=== PATIENT | female | born 1980 | race Asian ===

== ENCOUNTER 2024-05-27 08:09 | Outpatient (AMB) | payer OTHER, SELFPAY ==
[2024-05-27 08:13] VITALS: BP 118/70; PULSE 64; TEMP 36.2; O2SAT 99; BMI 19.2
--- NOTE | 2024-05-27 08:13 | MHC.PC.OV ---
Vital Signs 05/27/24 08:13 Height 5 ft 1 in Weight 101 lb 6 oz BMI 19.2 BP 118/70 Blood Pressure Location Lt brachial Position Sitting Pulse 64 Pulse Source Pulse Oximeter Temp 97.1 F Temp Source Temporal Artery Scan Pulse Oximetry (%) 99 Oxygen Delivery Method Room Air Intake Visit Reasons: Establish care Allergies No Known Allergies Allergy (Verified 05/27/24 08:25) Medication List - Last Reconciled 05/27/24 by Yady Mc PA-C No Known Home Meds Tobacco use date assessed: 05/27/24 Dental Screening Dental Screen Date: 05/27/24 Did you have a dental visit in the last 12 months?: No Did you have a dental problem in the last 6 months where you did not have access to dental care?: No Was dental information given to patient?: Yes HPI Establish care HPI Details 44 year old female coming to the office for the first time. The patient is a 44-year-old female presenting with a persistent cough and for wellness evaluation. She reports a two-month history of a persistent dry cough following a COVID-19 infection. Despite antibiotic treatment, the cough has not improved. The cough is dry and occasionally we will become productive with clear phlegm. It does not interfere with sleep and is not aggravated by exercise. Previous similar episodes occurred during allergy seasons, with limited relief from allergy medications and inhalers. She denies smoking, gastroesophageal reflux, chest pain, or any alarming symptoms such as hemoptysis or dyspnea. Notably, she underwent menopause two years ago and initially experienced hot flashes. She has a previous history of abnormal Pap smear and has not seen a hospice/home health aide in many years. She is not up-to-date on colonoscopy or mammogram. 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 1. Little interest or pleasure in doing things: not at all 2. Feeling down, depressed, or hopeless: not at all 3. Trouble falling or staying asleep, or sleeping too much: not at all 4. Feeling tired or having little energy: not at all 5. Poor appetite or overeating: not at all 6. Feeling bad about yourself - or that you are a failure or have let yourself or your family down: not at all 7. Trouble concentrating on things, such as reading the newspaper or watching television: not at all 8. Moving or speaking so slowly that other people could have noticed. Or the opposite - being so fidgety or restless that you have been moving around a lot more than usual: not at all 9. Thoughts that you would be better off or of hurting yourself in some way: not at all Total score: 0 Depression Screening Interpretation: Negative Depression Screening Done: Yes 35025 - PHQ-9 Billing: Yes Source: Developed by Drs. Abdon Damian, Berta Jolly, Conrado Roblero and colleagues, with an educational madeline from [employer]. Thrive Questionnaire Date Thrive assessed: 05/27/24 I am a: Patient What is your living situation today?: I have a steady place to live Within the past 12 months, did the food you bought not last and you didn't have the money to get more?: I choose not to answer this question Within the past 12 months, did you worry whether your food would run out before you got money to buy more?: I choose not to answer this question Do you have trouble paying for medicines?: No Do you have trouble getting transportation to medical appointments?: No Do you have trouble paying your heating and electricity bill?: No Do you have trouble taking care of your child, family member or friend?: No Do you have trouble with day-to-day activities such as bathing, preparing meals, shopping, managing finances, etc.?: No Are you currently unemployed and looking for a job?: No Are you interested in more education?: I choose not to answer this question Please select the resources that you would like help with: Education Currently or been in a relationship where the following occur: I choose not to answer THRIVE Score: 0 AUDIT C Alcohol Use Questionnaire (AUDIT-C) 1. How often do you have a drink containing alcohol?: 2-4 times a month 2. How many drinks containing alcohol do you have on a typical day when you are drinking?: 1 or 2 3. How often do you have six or more drinks on one occasion?: Never Total Score: 2 ALEXANDRA-7 AMB Questionnaire ALEXANDRA-7 Date ALEXANDRA - 7 assessed: 05/27/24 Feeling nervous, anxious, or on edge: 0 = Not at all Not being able to stop or control worryin = Not at all Worrying too much about different things: 0 = Not at all Trouble relaxin = Not at all Being so restless that it is hard to sit still: 0 = Not at all Becoming easily annoyed or irritable: 0 = Not at all Feeling afraid as if something awful might happen: 0 = Not at all Total ALEXANDRA-7 score (0-4 normal; 5-9 mild; 10-14 moderate; 15-21 severe): 0 Source: Developed by Drs. Abdon Damian, Berta Jolly, Conrado Roblero and colleagues, with an educational madeline from [employer]. ALEXANDRA-7 Assessment Billing ALEXANDRA-7 Assessment Tool: ALEXANDRA-7 Assessment 51844 Review of Systems Const Denies body aches, Denies chills, Denies fever(s), Denies headache(s) and Denies poor appetite Eyes Reports no additional complaints ENT Denies dizziness and Denies headache(s) Card Denies chest pain, Denies syncope, Denies edema, Denies irregular heart rhythm, Denies lightheadedness and Denies dyspnea Resp Reports cough, Denies hemoptysis and Denies dyspnea GI Denies abdominal pain, Denies nausea and Denies vomiting Reports no additional complaints Musc Reports no additional complaints and Denies abnormal gait Skin/Breast Reports system reviewed and no additional complaints, except as documented Neuro Denies abnormal gait, Denies dizziness, Denies syncope and Denies headache(s) Psych Reports no additional complaints Physical exam (Primary Care) Vital Signs: Last Vital Signs Temp 97.1 F 05/27/24 08:13 Pulse 64 05/27/24 08:13 BP 118/70 05/27/24 08:13 Pulse Ox 99 05/27/24 08:13 Oxygen Delivery Method Room Air 05/27/24 08:13 BMI result Body Mass Index 19.2 Tobacco/Smoking Status: Tobacco use Status Tobacco use date assessed 05/27/24 05/27/24 08:17 Patient Tobacco Use Status Never used Tobacco 05/27/24 08:17 PHQ-9: PHQ-9 Score PHQ-9: Total score 0 05/27/24 08:19 Depression Screening Interpretation: Negative Thrive Assessment: Date of Thrive Assessment Date Thrive assessed 05/27/24 05/27/24 08:19 Currently or been in a relationship where the following occur: I choose not to answer Const General: cooperative, healthy appearing, comfortable and no acute distress Orientation/consciousness: patient oriented x3 HENMT Head: Yes normocephalic Ears: hearing grossly normal bilaterally General nose exam: Normal external nose present Eyes General: appearance normal, both eyes and all related structures Conjunctivae: conjunctivae normal Neck Neck: Yes full ROM and Yes no lymphadenopathy Resp Effort & Inspection: normal respiratory effort Auscultation: clear to auscultation bilaterally, no crackles, no rales, no rhonchi and no wheezes Cardio Rate: regular rate Rhythm: regular rhythm Skin General skin exam: no rashes or lesions noted Neuro General: patient oriented x3 Gait exam (Neuro): Normal gait present Extrem General: Yes normal to inspection, Yes full ROM and No edema Psych Affect: normal affect Attitude: cooperative Insight: Good insight present (Psych) Judgement: Good judgement present (Psych) Coding Level of Care Code New Pt Level 4 (38359) Diagnoses Persistent cough R05.3 Seasonal allergies J30.2 Screening for hypercholesterolemia Z13.220 Screening for colorectal cancer Z12.11; Z12.12 Screening for breast cancer Z12.39 Additional Codes ALEXANDRA-7 Assessment Billing - ALEXANDRA-7 Assessment Tool: ALEXANDRA-7 Assessment 74940 ([id number]) PHQ-9 - 78796 - PHQ-9 Billing: Yes ([id number]) Assessment & Plan Assessment & Plan (1) Persistent cough: Code(s): R05.3 - Chronic cough Category: Medical Plan: I will evaluate the persistent cough potentially linked to post-infectious causes or seasonal allergies by ordering a pulmonary function test to assess for asthma. An inhaler has been prescribed for potential attacks, particularly given the seasonal pattern noted. Allergy medication and a nasal spray have been initiated for daily use. Benzonatate also prescribed to be used as needed. Low suspicion for GERD contributing to persistent cough due to lack of reflux or nausea and lack of phlegm production. If PFT is negative can consider referral to turntable operator. At this time we will defer imaging as lungs are clear on exam and low suspicion for infectious cause (2) Seasonal allergies: Code(s): J30.2 - Other seasonal allergic rhinitis Category: Medical Plan: Antihistamine and nasal spray has been prescribed today. (3) Screening for hypercholesterolemia: Code(s): Z13.220 - Encounter for screening for lipoid disorders Category: Medical Plan: Blood work ordered. (4) Screening for colorectal cancer: Code(s): Z12.11 - Encounter for screening for malignant neoplasm of colon; Z12.12 - Encounter for screening for malignant neoplasm of rectum Category: Medical Plan: Referral placed for GI specialist (5) Screening for breast cancer: Code(s): Z12.39 - Encounter for other screening for malignant neoplasm of breast Category: Medical Plan: Mammogram ordered today Plan Comprehensive blood work including fasting cholesterol profiling and other labs will verify menopause status and address any related symptoms. Health maintenance includes mammogram and planned colonoscopy, with referrals to gynecology for routine exams to ensure all health aspects are covered. This note was constructed using voice recognition software. While every effort has been made to ensure accuracy and agronomist, still areas may have been included sometimes these areas may affect the content or meeting of the given symptoms. Total time spent caring for the patient today was 30 minutes. This includes time spent before the visit reviewing the chart, time spent during the visit, and time spent after the visit and documentation. Patient was informed and verbally consented to the use of an ambient scribe for clinic note documentation during this visit. Orders: Orders Comprehensive Met. Panel Today Z00.00 - Encounter for general adult medical examination without abnormal findings TSH reflex Free T4 Today Z00.00 - Encounter for general adult medical examination without abnormal findings Vitamin B12 and Folate Today Z00.00 - Encounter for general adult medical examination without abnormal findings Vitamin D 25-OH Total Today Z00.00 - Encounter for general adult medical examination without abnormal findings Lipid Panel Today J30.2 - Other seasonal allergic rhinitis, Z13.220 - Encounter for screening for lipoid disorders MM tomosynthesis screening BI Today Z12.31 - Encounter for screening mammogram for malignant neoplasm of breast PFT pulmonary function test Today J30.2 - Other seasonal allergic rhinitis, R05.3 - Chronic cough Complete Blood Count Auto Diff Today Z00.00 - Encounter for general adult medical examination without abnormal findings Free T4 (Free Thyroxine) Today Z00.00 - Encounter for general adult medical examination without abnormal findings Referrals OPERATIONS ADMINISTRATIVE ASSISTANT Referral Z12.4 - Encounter for screening for malignant neoplasm of cervix Gastroenterology Referral Z12.11 - Encounter for screening for malignant neoplasm of colon Medications: New fexofenadine 180 mg PO DAILY 90 tabs 1RF albuterol sulfate 90 mcg/actuation 1 inh inhalation QID 6.7 grams 0RF fluticasone propionate 50 mcg/actuation (Flonase Allergy Relief) administer into each nostril 1 spray intranasal DAILY 16 grams 1RF benzonatate 100 mg PO BID PRN 30 caps 0RF cough
== END 2024-05-27 08:44 | disposition home or self-care (01) ==
LOC: HO.HMCH 08:10
DX: R05.3 Chronic cough (principal); J30.2 Other seasonal allergic rhinitis; Z13.220 Encounter for screening for lipoid disorders; Z12.11 Encounter for screening for malignant neoplasm of colon; Z12.12 Encounter for screening for malignant neoplasm of rectum; Z12.39 Encounter for other screening for malignant neoplasm of breast

== ENCOUNTER → 2024-05-27 08:09 | Outpatient (BNVA) | payer OTHER, SELFPAY | DX: R05.3 Chronic cough (principal); J30.2 Other seasonal allergic rhinitis | CPT/HCPCS: 96127 ==

== ENCOUNTER 2024-06-08 16:23 | Outpatient (REF) | payer OTHER, SELFPAY | END 2024-06-08 16:24 | disposition home or self-care (01) | LOC: HO.MAMMO 16:23 | DX: Z12.31 Encounter for screening mammogram for malignant neoplasm of breast (principal) | CPT/HCPCS: 77063; 77067 ==

== ENCOUNTER → 2024-06-08 16:30 | Outpatient (BNV) | payer OTHER, SELFPAY | PROVIDERS: Visit Provider Internal Medicine | DX: Z12.31 Encounter for screening mammogram for malignant neoplasm of breast (principal) | CPT/HCPCS: 77063; 77067 ==

== ENCOUNTER 2024-08-13 08:15 | Outpatient (REF) | payer OTHER, SELFPAY ==
--- NOTE | 2024-08-13 08:18 | PFT_ITS ---
Flows: FEV1: 109 % of predicted at 2.64 L FVC: 99 % of predicted at 2.92 L FEV1/FVC: 90 % Bronchodilator response: Absent Volumes: Total lung capacity: 96 % of predicted at 4.50 L Residual volume: 121 % of predicted at 1.51 L Slow vital capacity: 86 % of predicted at 2.98 L Expiratory reserve volume: 42 % of predicted at 0.42 L Diffusion capacity: Normal Impression: No obstructive or restrictive ventilatory defect. No bronchodilator response. Increased residual volume suggests air trapping. MTDD
[2024-08-13 08:54] VITALS: PULSE 62; O2SAT 98
== END 2024-08-13 08:16 | disposition home or self-care (01) ==
LOC: HO.RESP 08:15
DX: Z00.00 Encounter for general adult medical examination without abnormal findings (principal); R05.3 Chronic cough; J30.2 Other seasonal allergic rhinitis; M51.16 Intervertebral disc disorders with radiculopathy, lumbar region; Z13.31 Encounter for screening for depression
CPT/HCPCS: 94010; 94640; 94727; 94729; 96127

== ENCOUNTER → 2024-08-13 08:18 | Outpatient (BNV) | payer OTHER, SELFPAY | PROVIDERS: Visit Provider Internal Medicine Pulmonary Disease | DX: R05.9 Cough, unspecified (principal) | CPT/HCPCS: 94060; 94727; 94729 ==

== ENCOUNTER 2024-08-13 14:55 | Outpatient (AMB) | payer OTHER, SELFPAY ==
--- NOTE | 2024-08-13 14:58 | MHC.PC.OV ---
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 Metal Patterns Required: No Accompanied by: Self / Same As Patient Allergies No Known Allergies Allergy (Verified 08/13/24 15:14) Medication List - Last Reconciled 08/13/24 by Yady Mc PA-C albuterol sulfate 90 mcg/actuation 1 inh inhalation QID benzonatate 100 mg PO BID PRN fexofenadine 180 mg PO DAILY fluticasone propionate 50 mcg/actuation (Flonase Allergy Relief) 1 spray intranasal DAILY Tobacco use date assessed: 08/13/24 Dental Screening Dental Screen Date: 08/13/24 Did you have a dental visit in the last 12 months?: No Did you have a dental problem in the last 6 months where you did not have access to dental care?: No Was dental information given to patient?: No HPI ANNUAL HPI Details 44-year-old female with past medical history of seasonal allergies last seen 05/2024 coming in for annual exam. Patient states the cough has been improving since initiation of the allergy medication. She has no acute concerns today. 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 1. Little interest or pleasure in doing things: not at all 2. Feeling down, depressed, or hopeless: not at all 3. Trouble falling or staying asleep, or sleeping too much: not at all 4. Feeling tired or having little energy: not at all 5. Poor appetite or overeating: not at all 6. Feeling bad about yourself - or that you are a failure or have let yourself or your family down: not at all 7. Trouble concentrating on things, such as reading the newspaper or watching television: not at all 8. Moving or speaking so slowly that other people could have noticed. Or the opposite - being so fidgety or restless that you have been moving around a lot more than usual: not at all 9. Thoughts that you would be better off or of hurting yourself in some way: not at all Total score: 0 Depression Screening Interpretation: Negative Depression Screening Done: Yes 16579 - PHQ-9 Billing: Yes Source: Developed by Drs. Abdon Damian, Berta Jolly, Conrado Roblero and colleagues, with an educational madeline from [employer]. Thrive Questionnaire Date Thrive assessed: 08/13/24 I am a: Patient What is your living situation today?: I have a steady place to live Within the past 12 months, did the food you bought not last and you didn't have the money to get more?: I choose not to answer this question Within the past 12 months, did you worry whether your food would run out before you got money to buy more?: I choose not to answer this question Do you have trouble paying for medicines?: No Do you have trouble getting transportation to medical appointments?: No Do you have trouble paying your heating and electricity bill?: No Do you have trouble taking care of your child, family member or friend?: No Do you have trouble with day-to-day activities such as bathing, preparing meals, shopping, managing finances, etc.?: No Are you currently unemployed and looking for a job?: No Are you interested in more education?: I choose not to answer this question Please select the resources that you would like help with: Education Currently or been in a relationship where the following occur: I choose not to answer THRIVE Score: 0 AUDIT C Alcohol Use Questionnaire (AUDIT-C) 1. How often do you have a drink containing alcohol?: 2-4 times a month 2. How many drinks containing alcohol do you have on a typical day when you are drinking?: 1 or 2 3. How often do you have six or more drinks on one occasion?: Never Total Score: 2 ALEXANDRA-7 AMB Questionnaire ALEXANDRA-7 Date ALEXANDRA - 7 assessed: 08/13/24 Feeling nervous, anxious, or on edge: 0 = Not at all Not being able to stop or control worryin = Not at all Worrying too much about different things: 0 = Not at all Trouble relaxin = Not at all Being so restless that it is hard to sit still: 0 = Not at all Becoming easily annoyed or irritable: 0 = Not at all Feeling afraid as if something awful might happen: 0 = Not at all Total ALEXANDRA-7 score (0-4 normal; 5-9 mild; 10-14 moderate; 15-21 severe): 0 Source: Developed by Drs. Abdon Damian, Berta Jolly, Conrado Roblero and colleagues, with an educational madeline from [employer]. ALEXANDRA-7 Assessment Billing ALEXANDRA-7 Assessment Tool: ALEXANDRA-7 Assessment 84868 Review of Systems Const Denies body aches, Denies chills, Denies fever(s), Denies headache(s) and Denies poor appetite Eyes Reports no additional complaints ENT Denies dysphagia, Denies dizziness, Denies headache(s) and Denies odynophagia Card Denies chest pain, Denies syncope, Denies edema, Denies irregular heart rhythm, Denies lightheadedness and Denies dyspnea Resp Denies cough and Denies dyspnea GI Denies abdominal pain, Denies constipation, Denies dysphagia, Denies diarrhea, Denies nausea, Denies odynophagia and Denies vomiting Reports no additional complaints Musc Denies abnormal gait and Reports back pain (intermittent ) Skin/Breast Reports system reviewed and no additional complaints, except as documented Neuro Denies abnormal gait, Denies dizziness, Denies syncope and Denies headache(s) Psych Reports no additional complaints Physical exam (Primary Care) Vital Signs: Last Vital Signs Pulse 65 08/13/24 14:59 BP 118/80 08/13/24 14:59 Pulse Ox 98 08/13/24 14:59 Oxygen Delivery Method Room Air 06/12/25 14:59 BMI result Body Mass Index 19.2 Tobacco/Smoking Status: Tobacco use Status Tobacco use date assessed 08/13/24 08/13/24 15:04 Patient Tobacco Use Status Never used Tobacco 08/13/24 15:04 PHQ-9: PHQ-9 Score PHQ-9: Total score 0 08/13/24 15:04 Depression Screening Interpretation: Negative Thrive Assessment: Date of Thrive Assessment Date Thrive assessed 08/13/24 08/13/24 15:04 Currently or been in a relationship where the following occur: I choose not to answer Const General: cooperative, healthy appearing, comfortable and no acute distress Orientation/consciousness: patient oriented x3 HENMT Head: Yes normocephalic Ears: hearing grossly normal bilaterally, external ears normal, TM's normal bilaterally and EAC's normal General nose exam: Normal external nose present Face and sinus: Yes normal facial exam and Yes sinuses nontender Mouth: Normal oral and palatal mucosa present and tongue normal Throat: Yes posterior oropharynx normal Eyes General: appearance normal, both eyes and all related structures Conjunctivae: conjunctivae normal Pupils: Equal, round and reactive pupils present EOM: EOMs intact bilaterally and No Nystagmus present Neck Neck: Yes normal visual inspection, Yes full ROM and Yes no lymphadenopathy Chest Chest palpation & inspection: normal inspection of the chest Resp Effort & Inspection: normal respiratory effort Auscultation: clear to auscultation bilaterally, no crackles, no rales, no rhonchi, no wheezes and breath sounds present Cardio Rate: regular rate Rhythm: regular rhythm Peripheral pulses: radial pulses present and dorsalis pedis present GI Inspection: Yes normal to inspection and No Abdominal wall edema Palpation (GI): Soft to palpation, not firm and nontender Auscultation: normal bowel sounds Rectal Exam - Female: deferred General: Yes no CVA tenderness Back/Spine/Pelvis Back: no CVA tenderness Skin General skin exam: no rashes or lesions noted Neuro General: patient oriented x3 Cranial nerves: Yes Equal, round and reactive pupils present, Yes Midline tongue present, Yes Ability to bilaterally elevate shoulders present and No Nystagmus present Gait exam (Neuro): Normal gait present Extrem General: Yes normal to inspection, Yes full ROM, No no pedal edema and No edema Psych Speech and movement: Normal speech and movement present Affect: normal affect Insight: Good insight present (Psych) Judgement: Good judgement present (Psych) Coding Level of Care Code Est Pt Prev Care 40-64y(51444) Diagnoses Annual physical exam Z00.00 Persistent cough R05.3 Seasonal allergies J30.2 Screening for breast cancer Z12.39 Lumbar disc herniation with radiculopathy M51.16 Screening for colorectal cancer Z12.11; Z12.12 Additional Codes ALEXANDRA-7 Assessment Billing - ALEXANDRA-7 Assessment Tool: ALEXANDRA-7 Assessment 52686 ([id number]) PHQ-9 - 90178 - PHQ-9 Billing: Yes ([id number]) Assessment & Plan Assessment & Plan (1) Annual physical exam: Code(s): Z00.00 - Encounter for general adult medical examination without abnormal findings Category: Medical Plan: Patient is due for colonoscopy and Pap smears which have not yet been completed. I reminded the patient to reach out to the offices to schedule these appointments and patient was provided with numbers today. Patient also reminded about blood work. Plan to follow up in a year or sooner if needed. (2) Persistent cough: Code(s): R05.3 - Chronic cough Category: Medical Plan: Patient has been using Katherine daily and Flonase as needed. She is not needed the albuterol inhaler. Her cough has been improving and no longer experiences a cough throughout the day. We are still awaiting the PFTs to be resulted. (3) Seasonal allergies: Code(s): J30.2 - Other seasonal allergic rhinitis Category: Medical Plan: Antihistamine and nasal spray to be continued. (4) Screening for breast cancer: Code(s): Z12.39 - Encounter for other screening for malignant neoplasm of breast Category: Medical Plan: Mammogram is up-to-date (5) Lumbar disc herniation with radiculopathy: Comment: 2022 s/p physical therapy - intermittent pain only now Code(s): M51.16 - Intervertebral disc disorders with radiculopathy, lumbar region Category: Medical Plan: Patient has a history of lumbar disc herniation with radiculopathy underwent conservative measurement and does experience intermittent back pain. She states the pain is manageable and denies physical therapy or medical management at this time. Continue to monitor at this time. (6) Screening for colorectal cancer: Code(s): Z12.11 - Encounter for screening for malignant neoplasm of colon; Z12.12 - Encounter for screening for malignant neoplasm of rectum Category: Medical Plan: Reminded patient about colonoscopy screening. Plan This note was constructed using voice recognition software. While every effort has been made to ensure accuracy and track and field coach, still areas may have been included sometimes these areas may affect the content or meeting of the given symptoms. Total time spent caring for the patient today was 30 minutes. This includes time spent before the visit reviewing the chart, time spent during the visit, and time spent after the visit and documentation. Patient was informed and verbally consented to the use of an ambient scribe for clinic note documentation during this visit. Medications: Discontinued benzonatate Discontinued Reason: Patient no longer taking 100 mg PO BID PRN 30 caps 0RF cough
[2024-08-13 14:59] VITALS: BP 118/80; PULSE 65; O2SAT 98; BMI 19.2
== END 2024-08-13 15:35 | disposition home or self-care (01) ==
LOC: HO.HMCH 14:55
DX: Z00.00 Encounter for general adult medical examination without abnormal findings (principal); R05.3 Chronic cough; J30.2 Other seasonal allergic rhinitis; Z12.39 Encounter for other screening for malignant neoplasm of breast; M51.16 Intervertebral disc disorders with radiculopathy, lumbar region; Z12.11 Encounter for screening for malignant neoplasm of colon; Z12.12 Encounter for screening for malignant neoplasm of rectum

== ENCOUNTER 2024-10-05 08:55 | Outpatient (AMB) | payer OTHER, SELFPAY ==
[2024-10-05 09:01] VITALS: BP 122/78; PULSE 76; TEMP 36.7; O2SAT 97; BMI 19.5
--- NOTE | 2024-10-05 09:01 | AM.OFFWIN_ITS ---
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 - The cough began approximately one week ago, accompanied by fatigue and the production of yellow-green sputum. - The patient reports the cough was nito re enough to disrupt sleep the previous night. - No recent travel or known exposure to sick individuals was reported. - The patient has not been using any ove d-rxo-fzurbae medications regularly, except for a single dose of NyQuil. - The patient has a history of being pre scribed an inhaler by her primary care physician, but subsequent testing showed no asthma, and she is not currently using the inhaler. - She denies CP, SOB, abd pain, n/v/d. - She denies fever or chills. Physical Exam General: Cooperative, healthy appearing, comfortable and no acute distress Orientation/consciousness: Patient oriented x3 Limitations: No limitations Head: Normal to inspection Ears: Hearing grossly normal bilaterally, external ears normal and TM's normal bilaterally Nose: Normal external nose present, normal nares present, and no nasal discharge present. Face and sinus: Sinuses nontender to palpation. Mouth: Normal oral and palatal mucosa present and moist mucous membranes noted. Throat: Tonsils normal. Uvula is midline. Posterior oropharynx with erythema and no exudates. Eyes: Appearance normal, both eyes and all related structures Neck: Normal visual inspection, full ROM. No lymphadenopathy noted. Respiratory: Clear to auscultation bilaterally. Normal respiratory effort, able to speak in complete sentences. No respiratory distress, not tachypneic, no tripod positioning and no use of accessory muscles. Cardiovascular: Regular rate and rhythm. Normal S1 and S2 Skin: No rashes or lesions noted Patient was informed and verbally consented to the use of an ambient scribe for clinic note documentation during this visit [facility] Surgical History No pertinent past surgical history Family History Paternal Grandmother Breast cancer Father Colon cancer Social History Household Members: Significant Other Housing: Apartment Alcohol intake: current Alcohol intake frequency: a few times a week Patient Tobacco Use Status: Never used Tobacco Patient : No service: No Current occupational status: employed 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 - Prescribed a Z-Wilber (azithromycin) as an antibiotic treatment, with instructions to discontinue if COVID-19 test returns positive. - Provided a prescription for cough medicine and an inhaler to manage symptoms. - VSS, pt well appearing - diet as tolerated -tylenol or motrin as needed - follow up with PCP Orders: Orders SARS-CoV2/FLU/RSV Today R09.89 - Other specified symptoms and signs involving the circulatory and respiratory systems Medications: New albuterol sulfate 90 mcg/actuation 2 puffs inhalation Q6H PRN 8.5 grams 0RF shortness of breath or wheezing or cough azithromycin For 250 mg dose pack: take 500 mg today (day 1), then 250 mg for 4 days (days 2-5) PO 6 tabs 0RF benzonatate 100 mg PO bid-tid PRN 21 caps 0RF Cough 7 days Coding Level of Care Code Est Pt Level 3 (46816) Diagnoses URI with cough and congestion J06.9
--- OUTSIDE RECORDS SUMMARY | 2024-10-05 09:16 | XMS_ITS | Clinical Summary ---
Author Organization [facility] Address [address] [place] [phone] Phone Care Team Providers Care Plant Operations Coordinator Name Role Phone Keaton Lerner MD Primary Care Provide r Allergies Active Allergy Reactions Criticality Noted Date Comments Warren Pollen 07/19/2022 Medications ibuprofen (ADVIL,MOTRIN) 200 MG tablet Take 200 mg by mouth every 6 (six) hours as needed for pain (specific location in comments). Active Active Problems No known active problems Social History Tobacco Use Types Packs/Day Years Used Date Smoking Tobacco: Never Smokeless Tobacco: Never Tobacco Cessation:Counseling Given: Not Answered Alcohol Use Standard Drinks/Week Comments Not Currently 0 (1 standard drink = 0.6 oz pur e alcohol) Education Answer Date Recorded Are you interested in more education? Not on ashley e 07/09/2022 Are you concerned about learning? Not on file 07/09/2022 No 07/09/2022 No 07/09/2022 Digital Access Answer Date Recorded No 07/31/2022 No 07/31/2022 Reliable internet access at home? Not on file 07/31/2022 Device with a working camera? Not on file Comments Unknown Sex and Gender Information Value Date Recorded Sex Assigned at Female 07/19/2022 9:39 AM EDT Legal Sex Female 9:44 AM EDT Gender Identity Female 07/19/2022 9:39 AM EDT Sexual Orientation Not on file Last Filed Vital Signs Vital Sign Reading Time Taken Comments Blood Pressure 115/78 10/24/2022 1:30 PM EDT Pulse 62 10/24/2022 1:30 PM EDT Temperature 36.4 C (97.6 F) 10/24/2022 1:30 PM EDT Respiratory Rate - - Oxygen Saturation 97% 10/24/2022 1:30 PM EDT Inhaled Oxygen Concentration - - Weight 45.4 kg (100 lb) 10/24/2022 1:30 PM EDT Height 157.5 cm (5' 2 ) 10/24/2022 1:30 PM EDT Body Mass Index 18.29 10/24/2022 1:30 PM EDT Plan of Treatment Health Maintenance Due Date Last Done Comments LIPID PANEL 1979 DEPRESSION SCREENING 1991 HEPATITIS C SCREENING 05/01/1997 HIV ONE-TIME SCREENING (18-6 5 YEARS) 05/01/1997 PAP SMEAR 05/01/2000 MAMMOGRAM 2019 COVID-19 VACCINE (2023-2 5 season) 2023 01/16/2021, 05/11/2020, 04/12/2020 COLOGUARD 2024 COLONOSCOPY 2024 COLORECTAL CANCER SCREENING 2024 FIT TEST 2024 FOBT 2024 SIGMOIDOSCOPY 2024 VIRTUAL COLONOSCOPY 2024 Adult Td,Tdap Booster 05/28/2025 05/29/2015 SMOKING STATUS SCREENING (On ce After 26 Yrs) Completed 10/24/2022 HEPATITIS A VACCINES Aged Out No long er eligible based on patient's age to complete this topic HIB VACCINES Aged Out No longer eligi ble based on patient's age to complete this topic MENINGOCOCCAL VACCINES (ACWY) Aged Out No longer eligible based on patient's age to complete this topic MENINGOCOCCAL VACCINES (B) Aged Out N o longer eligible based on patient's age to complete this topic PNEUMOCOCCAL VACCINES (0-49 years) Aged Out No longer eligible b ased on patient's age to complete this topic Medical Devices Not on file Insurance [employer] [facility] P[facility] [employer] PPO * Guarantor: Katie Carrillo Account Type Relation to Patient Date of Phone Billing Address Personal/Family Self [address] [employer] PPO * Guarantor: Katie Carrillo Account Type Relation to Patient Date of Phone Billing Address Personal/Family Self 1980 [address] [employer] PPO [employer] PPO [employer] PPO Care Teams Plant Operations Coordinator Relationship Specialty Start Date End Date Keaton Lerner MD [address] [place] [address] [address] [place] [address] PCP - General Family Medicine 07/19/22 Additional Source Comments The information contained in this document represents components of the legal health record. It is not the complete legal health record.[facility]
== END 2024-10-05 10:10 | disposition home or self-care (01) ==
PROVIDERS: Visit Provider Physician Assistant Medical
DX: J06.9 Acute upper respiratory infection, unspecified (principal)

== ENCOUNTER 2024-10-05 08:55 | Outpatient (REF) | payer OTHER, SELFPAY ==
[2024-10-05 13:43] LABS: Resp Syncy Virus RNA Qual PCR NEGATIVE (Negative); SARS COV2 PCR INHOUSE NEGATIVE (Negative)
== END 2024-10-05 08:56 | disposition home or self-care (01) ==
LOC: HO.LNP 08:55
PROVIDERS: Visit Provider Physician Assistant Medical
DX: J06.9 Acute upper respiratory infection, unspecified (principal); R53.83 Other fatigue; R09.89 Other specified symptoms and signs involving the circulatory and respiratory systems; Z79.51 Long term (current) use of inhaled steroids
CPT/HCPCS: 87637

== ENCOUNTER 2024-10-16 15:38 | Outpatient (AMB) | payer OTHER, SELFPAY ==
--- NOTE | 2024-10-16 15:45 | MHC.OFFVIS ---
Vital Signs 10/16/24 15:46 Height 5 ft 1 in Weight 102 lb BMI 19.3 BP 138/80 Blood Pressure Location Lt brachial Position Sitting Pulse 62 Pulse Source Pulse Oximeter Pulse Oximetry (%) 97 Oxygen Delivery Method Room Air Intake Visit Reasons: colo screening Intake Note: Patient new consult for pre Colonoscopy screening. Patient cc: Pt denies any GI sx or concerns at this time. FMHx - Father CRC reported. Casino Operations Supervisor Required: No Casino Operations Supervisor Services: Casino Operations Supervisor Offered & Declined Accompanied by: Self / Same As Patient Allergies No Known Allergies Allergy (Verified 10/16/24 15:45) Medication List - Last Reconciled 10/16/24 by Mary Rhoades CNP No Known Home Meds HPI HPI colo screening: Details: Patient is a 44-year-old female without significant PMH. Referred by PCP for pre colonoscopy screening. Family history of Colorectal Cancer: The patient's father was diagnosed with colon cancer at around 65 years old. She reports regular bowel habits, no weight change, and no gastrointestinal symptoms. Patient denies: fever/chills, n/v, appetite changes, pyrosis, regurgitation,dysphasia, unintentional wt loss, ab pain or melena/hematochezia. 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 Cognitive needs: No Hearing needs: No Vision needs: No Review of Systems Const Reports as per HPI ENT Reports as per HPI Card Reports as per HPI Resp Reports as per HPI GI Reports as per HPI Reports as per HPI Physical Exam Vital Signs: BMI result Body Mass Index 19.3 Const General: healthy appearing, no acute distress and well developed Nutritional Appearance: average body habitus Orientation/consciousness: patient oriented x3 HEENT Head: Yes normal to inspection, Yes normocephalic and Yes atraumatic Face and sinus: Yes normal facial exam Eyes General: appearance normal, both eyes and all related structures Neck Neck: Yes normal visual inspection Resp Effort & Inspection: normal respiratory effort, able to speak in complete sentences, no tracheal deviation and symmetric chest movement Cardio Jugular venous distension: no JVD Neuro General: patient oriented x3 Gait exam (Neuro): Normal gait present Psych Appearance: grossly normal Mental Status: mental status grossly normal Speech and movement: Normal speech and movement present Affect: normal affect Attitude: cooperative Thought process: Normal thought process present Thought content: Normal thought content present Insight: Good insight present (Psych) Judgement: Good judgement present (Psych) Assessment & Plan Assessment & Plan (1) Screening for colorectal cancer: Code(s): Z12.11 - Encounter for screening for malignant neoplasm of colon; Z12.12 - Encounter for screening for malignant neoplasm of rectum Category: Medical Plan: Due for standard colon cancer screening. Family history ( father) of colorectal cancer, stressing the importance of screening due to her increased risk as a first-degree relative. - Patient chose Cologuard for initial screening, recognizing its limitations but will proceed with colonoscopy if deemed necessary. - Discussed colon cancer screening for patients with family history, addressing benefits of early detection. - Educated on symptom monitoring; instructed on what changes to report. - ordered Cologuard, with instructions for sample collection and return. Plan Follow-up after cologuard results as warranted or sooner as needed. Time: I spent a total of 25 minutes on the date of encounter which includes: Preparing to see the patient (reviewed previous documentation, test results and medical history) Performing a medically appropriate exam and/or evaluation Ordering medications, tests, and procedures Documenting clinical information in the health record Orders: Orders AMB Cologuard Today Z12.11 - Encounter for screening for malignant neoplasm of colon, Z12.12 - Encounter for screening for malignant neoplasm of rectum Coding Level of Care Code New Pt New Pt Level 2 (38474) Patient Type New Diagnoses Screening for colorectal cancer Z12.11; Z12.12
[2024-10-16 15:46] VITALS: BP 138/80; PULSE 62; O2SAT 97; BMI 19.3
== END 2024-10-16 16:06 | disposition home or self-care (01) ==
LOC: HO.HGI 15:38
PROVIDERS: Visit Provider Nurse Practitioner Family
DX: Z01.818 Encounter for other preprocedural examination (principal); Z12.11 Encounter for screening for malignant neoplasm of colon; Z12.12 Encounter for screening for malignant neoplasm of rectum
CPT/HCPCS: 99202